=== PATIENT | female | born 1995 | race Caucasian/White ===

== ENCOUNTER 2017-06-16 23:49 | Emergency (ER) | payer OTHER ==
--- NOTE | 2017-06-16 23:54 | EDPHY ---
H & P HPI/ROS: Chief Complaint: Alcohol intoxication, vomiting HPI: 21-year-old female who was found at [place] [employer] intoxicated. Patient passed out after vomiting. Was unable to ambulate on her own. Patient brought in by EMS for further evaluation. No obvious signs of trauma per EMS. Patient is now awake and alert and answering questions. ROS: Unobtainable secondary to the patient's intoxication PMH: Denies Medications: Denies Allergies: Denies Social History: Positive for alcohol Family History: non-contributory Physical Exam: Gen: Awake, alert, slurred speech smells of alcohol and emesis HEENT: Atraumatic Nose: no epistaxis or deformity Eyes: PERRLA, EOMI Mouth: Moist mucosa Neck: Supple, no step-offs or deformity Chest: Atraumatic, lungs clear to auscultation Heart: S1, S2 normal, no murmur Abd: Soft, non-tender, no guarding Back: Atraumatic Ext: no edema, atraumatic Skin: no rash Neuro: Sensation grossly intact, Strength 5/5 in bilateral upper and lower extremities Constitutional: Initial Vital Signs Temperature (C) 36.6 C 06/16/17 23:55 Heart Rate 81 06/16/17 23:55 Respiratory Rate 16 06/16/17 23:55 Blood Pressure 98/60 L 06/16/17 23:55 O2 Sat (%) 98 06/16/17 23:55 O2 Delivery Mode Room Air Allergies/Adverse Reactions: No Known Allergies Allergy (Unverified 06/16/17 23:55) Home Medications: Medication Instructions Recorded NK [No Known Home Meds] 06/16/17 Medical Decision Making ED Course/Re-evaluation: 0036 patient is ambulating unassisted in the emergency department. She is awake alert. She is here with a sober ride. She will be discharged with follow- up as needed as an outpatient. Departure - Departure Disposition: Home, Routine, Self-Care Clinical Impression: Alcoholic intoxication Condition: Good Instructions: Alcohol Intoxication (ED) Additional Instructions: Please try to avoid binge drinking alcohol. Follow up with [facility] for any concerns. Referrals: [facility],. [Clinic] - As per Instructions
[2017-06-16 23:58] VITALS: RESP 16
[2017-06-17 01:18] VITALS: BP 102/62; PULSE 72; TEMP 98.1; O2SAT 97
== END 2017-06-17 01:18 | disposition home or self-care (01) ==
DX: F10.129 Alcohol abuse with intoxication, unspecified (principal)